=== PATIENT | female | born 1930 | race Caucasian/White ===

== ENCOUNTER 2019-06-26 22:32 | Inpatient (IN) | payer MEDICARE, OTHER ==
[~2019-06-26] VITALS: Ht 152.4 cm; Wt 69.7 kg
[2019-06-26] MEDS ORDERED: SODIUM CHLORIDE FLUSH 10ML SYR IVF ONE (23:00)
[2019-06-26] MEDS ORDERED: ONDANSETRON 2MG/ML, 2ML ONE (23:28)
[2019-06-26] MEDS ORDERED: MORPHINE SULFATE 4 MG/ML, 1ML ONE (23:29)
[2019-06-26] MEDS ORDERED: MORPHINE SULFATE 4 MG/ML, 1ML IVPush PRN (23:30)
[2019-06-26] MEDS ORDERED: ONDANSETRON 2MG/ML, 2ML IVPush ONE (23:30)
[2019-06-26] MEDS ORDERED: PLEASE ENTER ALLERGIES MC SCH (23:30)
[2019-06-26 23:39] LABS: BASOPHILS # (AUTO) 0.01 x10^3/uL (0-0.1); BASOPHILS % (AUTO) 0 % (0-1); EOSINOPHILS # (AUTO) 0.01 x10^3/uL (0-0.4); EOSINOPHILS % (AUTO) 0 % (1-7); LYMPHOCYTES # (AUTO) 0.63 x10^3/uL (1-3.4); LYMPHOCYTES % (AUTO) 4 % (22-44); MD NO; MEAN CORPUSCULAR HEMOGLOBIN 31.4 pg (27.0-34.8); MEAN CORPUSCULAR HGB CONC 33.2 g/dL (32.4-35.8); MEAN CORPUSCULAR VOLUME 94.7 fL (80-100); MONOCYTES # (AUTO) 0.83 x10^3/uL (0.2-0.8); MONOCYTES % (AUTO) 5 % (2-9); NEUTROPHILS # (AUTO) 14.85 x10^3/uL (1.8-6.8); NEUTROPHILS % (AUTO) 91 % (42-75); PLATELET COUNT 247 x10^3/uL (130-400); RED BLOOD COUNT 4.57 x10^6/uL (3.82-5.3); RED CELL DISTRIBUTION WIDTH 13.2 % (9.6-15.2)
[2019-06-26 23:48] LABS: PROTHROMBIN TIME 21.4 Seconds (9.6-11.5)
[2019-06-26 23:50] LABS: ALANINE AMINOTRANSFERASE 82 U/L (12-78); ALBUMIN 3.5 g/dL (3.4-5.0); ANION GAP 8 mmol/L (5-15); CALCIUM 9.2 mg/dL (8.5-10.1); CHLORIDE 104 mmol/L (98-107)
[2019-06-26 23:53] LABS: ALKALINE PHOSPHATASE 112 U/L (45-117); BILIRUBIN,TOTAL 0.4 mg/dL (0.2-1.0); CREATININE 1.08 mg/dL (0.55-1.02); TOTAL PROTEIN 7.5 g/dL (6.4-8.2)
--- NOTE | 2019-06-27 00:04 | NUR ---
Pt placed on 2lpm O2 for low SpO2 readings after Morphine.
--- NOTE | 2019-06-27 00:54 | NUR ---
[facility]ALL CALLED FOR TRANSFER OF PT. [facility] REFUSED. SPOKE WITH JASSON
[2019-06-27] MEDS ORDERED: SODIUM CHLORIDE FLUSH 10ML SYR IVF PRN (01:00)
[2019-06-27] MEDS ORDERED: ATOR-2 PO (01:16)
--- NOTE | 2019-06-27 01:19 | NUR ---
Report given to Kenia ANTUNEZ
[2019-06-27] MEDS ORDERED: WARF2.5T74 PO (01:20)
[2019-06-27] MEDS ORDERED: DILT120T3 PO (01:21)
[2019-06-27 02:00] VITALS: BP 146/90
[2019-06-27 02:46] LABS: MICROSCOPIC INDICATED
[2019-06-27 02:57] LABS: CULTURE INDICATED? YES
[2019-06-27] MEDS ORDERED: POLYETHYLENE GLYCOL 17 GM PACKET PO PRN (03:00)
[2019-06-27] MEDS ORDERED: DOCUSATE 100 MG CAPSULE PO PRN (03:00)
[2019-06-27] MEDS ORDERED: PROMETHAZINE 25 MG/ML, 1ML IM PRN (03:00)
[2019-06-27] MEDS ORDERED: BISACODYL 10 MG SUPP PR PRN (03:00)
[2019-06-27] MEDS ORDERED: ACETAMINOPHEN 325 MG TABLET PO PRN (03:00)
[2019-06-27] MEDS ORDERED: PLEASE ENTER ALLERGIES MC SCH (03:00)
[2019-06-27] MEDS ORDERED: morphine SULFATE 10 MG/ML, 1ML IVPush PRN ×2 (03:00→09:00)
[2019-06-27] MEDS ORDERED: OXYcodone IR 5MG TABLET PO PRN (03:00)
[2019-06-27] MEDS ORDERED: CEFTRIAXONE PMX 1GM/50ML 50 ML IV SCH (03:30)
[2019-06-27] MEDS: ONDANSETRON 2MG/ML, 2ML IVPush PRN ×2 (04:21→17:31)
[2019-06-27 07:31] LABS: MEAN CORPUSCULAR HEMOGLOBIN 31.3 pg (27.0-34.8); MEAN CORPUSCULAR HGB CONC 32.7 g/dL (32.4-35.8); MEAN CORPUSCULAR VOLUME 95.5 fL (80-100); MEAN PLATELET VOLUME 7.9 fL (7.4-10.4); PLATELET COUNT 217 x10^3/uL (130-400); RED BLOOD COUNT 4.15 x10^6/uL (3.82-5.3); RED CELL DISTRIBUTION WIDTH 13.3 % (9.6-15.2)
[2019-06-27 07:33] LABS: INTERNATIONAL NORMALIZED RATIO 1.98 (0.93-1.1); PROTHROMBIN TIME 21.1 Seconds (9.6-11.5)
[2019-06-27 07:38] LABS: CHLORIDE 106 mmol/L (98-107)
[2019-06-27] MEDS: CALCIUM/VITAMIN D3 250-125 TABLET PO SCH ×2 (07:41→19:53)
[2019-06-27] MEDS: DILTIAZEM 120 MG CAP.ER.24H PO SCH (07:42)
[2019-06-27 07:45] LABS: ALANINE AMINOTRANSFERASE 75 U/L (12-78); ALBUMIN 3.1 g/dL (3.4-5.0); ALKALINE PHOSPHATASE 100 U/L (45-117); ANION GAP 6 mmol/L (5-15); BILIRUBIN,TOTAL 0.4 mg/dL (0.2-1.0); CALCIUM 8.6 mg/dL (8.5-10.1); CREATININE 1.06 mg/dL (0.55-1.02); TOTAL PROTEIN 6.7 g/dL (6.4-8.2)
[2019-06-27 07:59] VITALS: BP 138/81
[2019-06-27 08:03] LABS: BASOPHILS # (AUTO) 0.01 x10^3/uL (0-0.1); BASOPHILS % (AUTO) 0 % (0-1); EOSINOPHILS % (AUTO) 0 % (1-7); LYMPHOCYTES # (AUTO) 0.77 x10^3/uL (1-3.4); LYMPHOCYTES % (AUTO) 7 % (22-44); MD SCAN; MONOCYTES # (AUTO) 0.62 x10^3/uL (0.2-0.8); MONOCYTES % (AUTO) 6 % (2-9); NEUTROPHILS # (AUTO) 8.99 x10^3/uL (1.8-6.8); NEUTROPHILS % (AUTO) 87 % (42-75)
[2019-06-27 15:17] VITALS: BP 122/72
[2019-06-27] MEDS: OXYcodone IR 5MG TABLET PO PRN ×2 (17:31→21:29)
[2019-06-27 18:52] VITALS: BP 127/78
[2019-06-27] MEDS: SENNA/DOCUSATE TABLET PO SCH (19:53)
[2019-06-27] MEDS ORDERED: ATORVASTATIN 80 MG TABLET PO SCH (21:00)
[2019-06-27] MEDS: ACETAMINOPHEN 325 MG TABLET PO PRN (21:28)
[2019-06-28] VITALS (12 sets, daily range): BP systolic 62–141; BP diastolic 60–77
[2019-06-28 05:20] LABS: ALBUMIN 2.8 g/dL (3.4-5.0); ANION GAP 5 mmol/L (5-15); CALCIUM 8.9 mg/dL (8.5-10.1); CHLORIDE 103 mmol/L (98-107)
[2019-06-28 05:25] LABS: ALANINE AMINOTRANSFERASE 121 U/L (12-78); ALKALINE PHOSPHATASE 105 U/L (45-117); BILIRUBIN,TOTAL 0.5 mg/dL (0.2-1.0); CREATININE 1.12 mg/dL (0.55-1.02); TOTAL PROTEIN 6.1 g/dL (6.4-8.2)
[2019-06-28] MEDS ORDERED: SODIUM CHLORIDE 0.9% 1,000 ML IV SCH (08:30)
[2019-06-28] MEDS: CALCIUM/VITAMIN D3 250-125 TABLET PO SCH ×2 (09:06→23:23)
[2019-06-28] MEDS: DILTIAZEM 120 MG CAP.ER.24H PO SCH (09:07)
[2019-06-28 10:04] LABS: INTERNATIONAL NORMALIZED RATIO 2.32 (0.93-1.1); PROTHROMBIN TIME 24.8 Seconds (9.6-11.5)
[2019-06-28] MEDS: ONDANSETRON 2MG/ML, 2ML IVPush PRN (11:07)
[2019-06-28] MEDS: OXYcodone IR 5MG TABLET PO PRN ×2 (11:07→15:36)
[2019-06-28] MEDS ORDERED: FUROSEMIDE 20 MG/2 ML IV ONE (12:30)
[2019-06-28] MEDS ORDERED: PHYTONADIONE 10 MG/ML, 1ML IM ONE (13:30)
[2019-06-28 13:36] LABS: INTERNATIONAL NORMALIZED RATIO 2.26 (0.93-1.1); PROTHROMBIN TIME 24.2 Seconds (9.6-11.5)
[2019-06-28] MEDS: ACETAMINOPHEN 325 MG TABLET PO PRN (15:09)
[2019-06-28] MEDS ORDERED: DIPHENHYDRAMINE 50 MG/ML, 1ML ONE (15:14)
[2019-06-28] MEDS ORDERED: DIPHENHYDRAMINE 50 MG/ML, 1ML IVPush ONE (15:30)
[2019-06-28 17:20] LABS: INTERNATIONAL NORMALIZED RATIO 1.47 (0.93-1.1); PROTHROMBIN TIME 15.6 Seconds (9.6-11.5)
[2019-06-28] MEDS ORDERED: LABETALOL 5MG/ML, 20ML IV PRN (19:00)
[2019-06-28] MEDS ORDERED: OXYcodone 5 MG/5 ML ORAL.SOL UDC PO PRN (19:00)
[2019-06-28] MEDS ORDERED: ONDANSETRON 2MG/ML, 2ML IV PRN (19:00)
[2019-06-28] MEDS ORDERED: EPHEDRINE 50 MG/ML, 1ML IVPush PRN (19:00)
[2019-06-28] MEDS ORDERED: HYDROmorphone 2 MG/ML, 1ML IVPush PRN (19:00)
[2019-06-28] MEDS ORDERED: PROMETHAZINE 25 MG/ML, 1ML IV PRN (19:00)
[2019-06-28] MEDS ORDERED: ACETAMINOPHEN 325 MG TABLET PO PRN (19:00)
[2019-06-28] MEDS ORDERED: hydrALAzine 20 MG/ML, 1ML IV PRN (19:00)
[2019-06-28] MEDS ORDERED: MEPERIDINE/PF 25MG/ML,1ML IVPush PRN (19:00)
[2019-06-28] MEDS ORDERED: FENTANYL PF 100 MCG/2ML ONE ×2 (19:55→21:27)
[2019-06-28] MEDS ORDERED: NEOSPORIN OINT, 15GM ONE (20:08)
[2019-06-28] MEDS ORDERED: PHENYLEPHRINE 10 MG/ML ONE (20:15)
[2019-06-28] MEDS ORDERED: ONDANSETRON 2MG/ML, 2ML ONE (20:44)
[2019-06-28] MEDS ORDERED: CEFAZOLIN 1,000 MG ONE (20:44)
[2019-06-28] MEDS ORDERED: PROPOFOL 10 MG/ML, 20ML ONE (20:44)
[2019-06-28] MEDS ORDERED: DEXAMETHASONE 4 MG/ML, 1ML ONE (20:44)
[2019-06-28] MEDS ORDERED: EPHEDRINE 50 MG/ML, 1ML ONE (20:44)
[2019-06-28] MEDS ORDERED: SUCCINYLCHOLINE 20 MG/ML, 10ML ONE (20:44)
[2019-06-28] MEDS ORDERED: GLYCOPYRROLATE 0.2MG/1ML, 5ML ONE (20:53)
[2019-06-28] MEDS: FENTANYL PF 100 MCG/2ML IV PRN ×2 (21:25→21:30)
[2019-06-28] MEDS ORDERED: OXYcodone 5 MG/5 ML ORAL.SOL UDC ONE (21:27)
[2019-06-28] MEDS ORDERED: HYDROmorphone 1 MG/ML, 1ML INJ ONE (21:37)
[2019-06-28] MEDS ORDERED: PROMETHAZINE 25 MG/ML, 1ML ONE (21:54)
[2019-06-28] MEDS: SENNA/DOCUSATE TABLET PO SCH (23:23)
[2019-06-29 00:05] VITALS: BP 114/74
[2019-06-29 04:05] VITALS: BP 113/78
[2019-06-29] MEDS: CEFAZOLIN PMX 1GM/50ML 50 ML IV SCH ×2 (04:18→15:44)
[2019-06-29] MEDS: OXYcodone IR 5MG TABLET PO PRN ×2 (05:07→10:45)
[2019-06-29 05:44] LABS: BASOPHILS # (AUTO) 0.01 x10^3/uL (0-0.1); BASOPHILS % (AUTO) 0 % (0-1); EOSINOPHILS # (AUTO) 0.09 x10^3/uL (0-0.4); EOSINOPHILS % (AUTO) 1 % (1-7); LYMPHOCYTES # (AUTO) 0.94 x10^3/uL (1-3.4); LYMPHOCYTES % (AUTO) 8 % (22-44); MD NO; MEAN CORPUSCULAR HEMOGLOBIN 31.7 pg (27.0-34.8); MEAN CORPUSCULAR HGB CONC 33.2 g/dL (32.4-35.8); MEAN CORPUSCULAR VOLUME 95.4 fL (80-100); MONOCYTES % (AUTO) 3 % (2-9); NEUTROPHILS # (AUTO) 10.31 x10^3/uL (1.8-6.8); NEUTROPHILS % (AUTO) 88 % (42-75); PLATELET COUNT 188 x10^3/uL (130-400); RED BLOOD COUNT 3.54 x10^6/uL (3.82-5.3); RED CELL DISTRIBUTION WIDTH 13.3 % (9.6-15.2)
[2019-06-29 05:48] LABS: INTERNATIONAL NORMALIZED RATIO 1.17 (0.93-1.1); PROTHROMBIN TIME 12.4 Seconds (9.6-11.5)
[2019-06-29] MEDS ORDERED: HEPARIN 5,000 UNITS/ML, 1ML SQ SCH (07:00)
[2019-06-29] MEDS: CALCIUM/VITAMIN D3 250-125 TABLET PO SCH ×2 (07:42→20:53)
[2019-06-29] MEDS: DILTIAZEM 120 MG CAP.ER.24H PO SCH (07:42)
[2019-06-29 08:02] VITALS: BP 125/45
[2019-06-29] MEDS: SODIUM CHLORIDE 0.9% 1,000 ML IV SCH (09:03)
[2019-06-29] MEDS: ONDANSETRON 2MG/ML, 2ML IVPush PRN ×2 (10:45→20:53)
[2019-06-29] MEDS ORDERED: DIPHENHYDRAMINE 50 MG/ML, 1ML IVPush ONE (11:00)
[2019-06-29 14:17] VITALS: BP 106/70
[2019-06-29] MEDS ORDERED: ENOXAPARIN 40 MG/0.4 ML SQ SCH (14:30)
[2019-06-29 18:44] VITALS: BP 112/73
[2019-06-29] MEDS: SENNA/DOCUSATE TABLET PO SCH (20:53)
[2019-06-30] MEDS: OXYcodone IR 5MG TABLET PO PRN ×4 (00:37→22:45)
[2019-06-30 02:31] VITALS: BP 118/71
[2019-06-30 07:48] VITALS: BP 119/73
[2019-06-30] MEDS: DILTIAZEM 120 MG CAP.ER.24H PO SCH (08:10)
[2019-06-30] MEDS: ALENDRONATE 10 MG TABLET PO SCH (08:10)
[2019-06-30] MEDS: CALCIUM/VITAMIN D3 250-125 TABLET PO SCH ×2 (08:10→20:30)
[2019-06-30 08:23] LABS: BASOPHILS # (AUTO) 0.02 x10^3/uL (0-0.1); BASOPHILS % (AUTO) 0 % (0-1); EOSINOPHILS % (AUTO) 0 % (1-7); LYMPHOCYTES # (AUTO) 1.83 x10^3/uL (1-3.4); LYMPHOCYTES % (AUTO) 14 % (22-44); MD NO; MEAN CORPUSCULAR HEMOGLOBIN 31.4 pg (27.0-34.8); MEAN CORPUSCULAR HGB CONC 32.6 g/dL (32.4-35.8); MEAN CORPUSCULAR VOLUME 96.4 fL (80-100); MEAN PLATELET VOLUME 7.9 fL (7.4-10.4); MONOCYTES # (AUTO) 0.68 x10^3/uL (0.2-0.8); MONOCYTES % (AUTO) 5 % (2-9); NEUTROPHILS # (AUTO) 10.68 x10^3/uL (1.8-6.8); NEUTROPHILS % (AUTO) 81 % (42-75); PLATELET COUNT 251 x10^3/uL (130-400); RED BLOOD COUNT 3.34 x10^6/uL (3.82-5.3); RED CELL DISTRIBUTION WIDTH 13.6 % (9.6-15.2)
[2019-06-30 08:31] LABS: INTERNATIONAL NORMALIZED RATIO 1.1 (0.93-1.1); PROTHROMBIN TIME 11.7 Seconds (9.6-11.5)
[2019-06-30] MEDS ORDERED: BISA10SU4 PR (09:35)
[2019-06-30] MEDS ORDERED: OXYC5TAB3 PO (09:35)
[2019-06-30] MEDS ORDERED: CALC1TAB68 PO (09:35)
[2019-06-30] MEDS ORDERED: ALEN10TA10 PO (09:35)
[2019-06-30] MEDS ORDERED: SENN-193 PO (09:35)
[2019-06-30] MEDS ORDERED: ACET325T26 PO (09:35)
[2019-06-30] MEDS: SODIUM CHLORIDE 0.9% 1,000 ML IV SCH (10:14)
[2019-06-30 13:41] VITALS: BP 107/61
[2019-06-30] MEDS: ACETAMINOPHEN 325 MG TABLET PO PRN (14:24)
[2019-06-30] MEDS: ENOXAPARIN 30 MG/0.3 ML SQ SCH (15:04)
[2019-06-30 19:06] VITALS: BP 114/71
[2019-06-30] MEDS: SENNA/DOCUSATE TABLET PO SCH (20:30)
[2019-07-01 00:59] VITALS: BP 132/69
[2019-07-01 05:52] LABS: INTERNATIONAL NORMALIZED RATIO 0.93 (0.93-1.1); PROTHROMBIN TIME 9.9 Seconds (9.6-11.5)
[2019-07-01] MEDS: SODIUM CHLORIDE 0.9% 1,000 ML IV SCH (06:19)
[2019-07-01] MEDS: ALENDRONATE 10 MG TABLET PO SCH (06:46)
[2019-07-01 07:26] VITALS: BP 122/73
[2019-07-01] MEDS: DILTIAZEM 120 MG CAP.ER.24H PO SCH (08:12)
[2019-07-01] MEDS: CALCIUM/VITAMIN D3 250-125 TABLET PO SCH ×2 (08:12→20:53)
[2019-07-01] MEDS: OXYcodone IR 5MG TABLET PO PRN (09:23)
[2019-07-01 13:53] VITALS: BP 116/72
[2019-07-01] MEDS: ENOXAPARIN 30 MG/0.3 ML SQ SCH (15:40)
[2019-07-01] MEDS ORDERED: WARFARIN 5 MG TABLET PO-COUM ONE (18:00)
[2019-07-01 20:27] VITALS: BP 125/61
[2019-07-01] MEDS: SENNA/DOCUSATE TABLET PO SCH (20:53)
[2019-07-02 02:32] VITALS: BP 122/77
[2019-07-02] MEDS: SODIUM CHLORIDE 0.9% 1,000 ML IV SCH ×2 (03:00→20:53)
[2019-07-02 05:26] LABS: INTERNATIONAL NORMALIZED RATIO 0.91 (0.93-1.1); PROTHROMBIN TIME 9.6 Seconds (9.6-11.5)
[2019-07-02] MEDS: ALENDRONATE 10 MG TABLET PO SCH (06:38)
[2019-07-02 07:12] VITALS: BP 144/85
[2019-07-02] MEDS: CALCIUM/VITAMIN D3 250-125 TABLET PO SCH ×2 (08:12→20:28)
[2019-07-02] MEDS: DILTIAZEM 120 MG CAP.ER.24H PO SCH (08:12)
[2019-07-02] MEDS ORDERED: ENOXAPARIN 30 MG/0.3 ML SQ SCH (11:02)
[2019-07-02 11:17] LABS: MEAN CORPUSCULAR HEMOGLOBIN 31.5 pg (27.0-34.8); MEAN CORPUSCULAR HGB CONC 32.6 g/dL (32.4-35.8); MEAN CORPUSCULAR VOLUME 96.7 fL (80-100); MEAN PLATELET VOLUME 8.1 fL (7.4-10.4); PLATELET COUNT 295 x10^3/uL (130-400); RED BLOOD COUNT 3.41 x10^6/uL (3.82-5.3); RED CELL DISTRIBUTION WIDTH 13.8 % (9.6-15.2)
[2019-07-02 11:22] LABS: ALANINE AMINOTRANSFERASE 43 U/L (12-78); ALBUMIN 2.6 g/dL (3.4-5.0); ANION GAP 7 mmol/L (5-15); CALCIUM 8.6 mg/dL (8.5-10.1); CHLORIDE 100 mmol/L (98-107); CREATININE 0.89 mg/dL (0.55-1.02)
[2019-07-02 11:24] LABS: ALKALINE PHOSPHATASE 104 U/L (45-117); BILIRUBIN,TOTAL 1.2 mg/dL (0.2-1.0); TOTAL PROTEIN 6.1 g/dL (6.4-8.2)
[2019-07-02 11:37] LABS: BASOPHILS # (AUTO) 0.03 x10^3/uL (0-0.1); BASOPHILS % (AUTO) 0 % (0-1); EOSINOPHILS % (AUTO) 2 % (1-7); LYMPHOCYTES # (AUTO) 3.93 x10^3/uL (1-3.4); LYMPHOCYTES % (AUTO) 28 % (22-44); MD SCAN; MONOCYTES # (AUTO) 0.65 x10^3/uL (0.2-0.8); MONOCYTES % (AUTO) 5 % (2-9); NEUTROPHILS % (AUTO) 65 % (42-75)
[2019-07-02] MEDS: CEFAZOLIN PMX 1GM/50ML 50 ML IV SCH ×2 (13:24→20:53)
[2019-07-02 13:30] VITALS: BP 115/75
[2019-07-02] MEDS ORDERED: ACETAMINOPHEN 325 MG TABLET PO PRN (13:30)
[2019-07-02] MEDS ORDERED: ENOXAPARIN 30 MG/0.3 ML SQ ONE (13:30)
[2019-07-02] MEDS: OXYcodone IR 5MG TABLET PO PRN ×2 (16:22→20:29)
[2019-07-02] MEDS ORDERED: WARFARIN 5 MG TABLET PO-COUM ONE (18:00)
[2019-07-02 20:19] VITALS: BP 122/75
[2019-07-02] MEDS: GABAPENTIN 100 MG CAPSULE PO SCH (20:28)
[2019-07-02] MEDS: SENNA/DOCUSATE TABLET PO SCH (20:29)
[2019-07-03 02:05] VITALS: BP 132/61
[2019-07-03] MEDS: OXYcodone IR 5MG TABLET PO PRN ×2 (02:05→06:02)
[2019-07-03] MEDS: CEFAZOLIN PMX 1GM/50ML 50 ML IV SCH ×3 (04:43→20:53)
[2019-07-03] MEDS: ALENDRONATE 10 MG TABLET PO SCH (06:02)
[2019-07-03 06:12] LABS: BASOPHILS # (AUTO) 0.02 x10^3/uL (0-0.1); BASOPHILS % (AUTO) 0 % (0-1); EOSINOPHILS # (AUTO) 0.07 x10^3/uL (0-0.4); EOSINOPHILS % (AUTO) 0 % (1-7); LYMPHOCYTES # (AUTO) 1.95 x10^3/uL (1-3.4); LYMPHOCYTES % (AUTO) 12 % (22-44); MD NO; MEAN CORPUSCULAR HEMOGLOBIN 32.6 pg (27.0-34.8); MEAN CORPUSCULAR HGB CONC 33.4 g/dL (32.4-35.8); MEAN CORPUSCULAR VOLUME 97.6 fL (80-100); MEAN PLATELET VOLUME 7.9 fL (7.4-10.4); MONOCYTES # (AUTO) 0.85 x10^3/uL (0.2-0.8); MONOCYTES % (AUTO) 5 % (2-9); NEUTROPHILS # (AUTO) 12.83 x10^3/uL (1.8-6.8); NEUTROPHILS % (AUTO) 82 % (42-75); PLATELET COUNT 263 x10^3/uL (130-400); RED BLOOD COUNT 3.07 x10^6/uL (3.82-5.3); RED CELL DISTRIBUTION WIDTH 13.9 % (9.6-15.2)
[2019-07-03 06:14] LABS: PROTHROMBIN TIME 10.6 Seconds (9.6-11.5)
[2019-07-03 09:25] VITALS: BP 144/66
[2019-07-03] MEDS: GABAPENTIN 100 MG CAPSULE PO SCH ×2 (09:25→20:53)
[2019-07-03] MEDS: CALCIUM/VITAMIN D3 250-125 TABLET PO SCH ×2 (09:25→20:53)
[2019-07-03] MEDS: DILTIAZEM 120 MG CAP.ER.24H PO SCH (09:25)
[2019-07-03 13:56] VITALS: BP 115/65
[2019-07-03] MEDS: ENOXAPARIN 60 MG/0.6 ML SQ SCH (16:55)
[2019-07-03] MEDS ORDERED: WARFARIN 5 MG TABLET PO-COUM ONE (18:00)
[2019-07-03] MEDS: SODIUM CHLORIDE 0.9% 1,000 ML IV SCH (18:21)
[2019-07-03 19:27] VITALS: BP 125/61
[2019-07-03] MEDS: SENNA/DOCUSATE TABLET PO SCH (20:53)
[2019-07-04 03:44] VITALS: BP 113/64
[2019-07-04] MEDS: CEFAZOLIN PMX 1GM/50ML 50 ML IV SCH ×3 (04:49→21:10)
[2019-07-04 05:46] LABS: INTERNATIONAL NORMALIZED RATIO 1.08 (0.93-1.1); PROTHROMBIN TIME 11.5 Seconds (9.6-11.5)
[2019-07-04] MEDS: ALENDRONATE 10 MG TABLET PO SCH (06:08)
[2019-07-04] MEDS: CALCIUM/VITAMIN D3 250-125 TABLET PO SCH ×2 (07:44→21:11)
[2019-07-04] MEDS: GABAPENTIN 100 MG CAPSULE PO SCH ×2 (07:44→21:10)
[2019-07-04] MEDS: DILTIAZEM 120 MG CAP.ER.24H PO SCH (07:44)
[2019-07-04] MEDS: OXYcodone IR 5MG TABLET PO PRN ×2 (07:44→21:11)
[2019-07-04 07:46] VITALS: BP 151/75
[2019-07-04 13:13] VITALS: BP 134/59
[2019-07-04] MEDS: SODIUM CHLORIDE 0.9% 1,000 ML IV SCH (15:53)
[2019-07-04] MEDS: ENOXAPARIN 60 MG/0.6 ML SQ SCH (16:28)
[2019-07-04] MEDS ORDERED: WARFARIN 5 MG TABLET PO-COUM ONE (18:00)
[2019-07-04 18:56] VITALS: BP 111/57
[2019-07-04] MEDS: SENNA/DOCUSATE TABLET PO SCH (21:11)
[2019-07-05 02:47] VITALS: BP 128/89
[2019-07-05 05:06] LABS: BASOPHILS # (AUTO) 0.02 x10^3/uL (0-0.1); BASOPHILS % (AUTO) 0 % (0-1); EOSINOPHILS # (AUTO) 0.49 x10^3/uL (0-0.4); EOSINOPHILS % (AUTO) 4 % (1-7); LYMPHOCYTES # (AUTO) 1.89 x10^3/uL (1-3.4); LYMPHOCYTES % (AUTO) 14 % (22-44); MD NO; MEAN CORPUSCULAR HEMOGLOBIN 32.4 pg (27.0-34.8); MEAN CORPUSCULAR HGB CONC 33.2 g/dL (32.4-35.8); MEAN CORPUSCULAR VOLUME 97.6 fL (80-100); MEAN PLATELET VOLUME 7.3 fL (7.4-10.4); MONOCYTES # (AUTO) 0.84 x10^3/uL (0.2-0.8); MONOCYTES % (AUTO) 6 % (2-9); NEUTROPHILS # (AUTO) 9.89 x10^3/uL (1.8-6.8); NEUTROPHILS % (AUTO) 75 % (42-75); PLATELET COUNT 252 x10^3/uL (130-400); RED CELL DISTRIBUTION WIDTH 14.5 % (9.6-15.2)
[2019-07-05 05:11] LABS: INTERNATIONAL NORMALIZED RATIO 1.17 (0.93-1.1); PROTHROMBIN TIME 12.4 Seconds (9.6-11.5)
[2019-07-05 05:14] LABS: ANION GAP 5 mmol/L (5-15); CALCIUM 8.3 mg/dL (8.5-10.1); CHLORIDE 104 mmol/L (98-107)
[2019-07-05] MEDS: CEFAZOLIN PMX 1GM/50ML 50 ML IV SCH ×2 (05:14→13:44)
[2019-07-05] MEDS: ALENDRONATE 10 MG TABLET PO SCH (05:14)
[2019-07-05 05:17] LABS: CREATININE 0.72 mg/dL (0.55-1.02)
[2019-07-05 07:01] VITALS: BP 138/84
[2019-07-05 08:08] VITALS: BP 139/65
[2019-07-05] MEDS: DILTIAZEM 120 MG CAP.ER.24H PO SCH (08:08)
[2019-07-05] MEDS: CALCIUM/VITAMIN D3 250-125 TABLET PO SCH (08:08)
[2019-07-05] MEDS: GABAPENTIN 100 MG CAPSULE PO SCH (08:08)
[2019-07-05] MEDS: OXYcodone IR 5MG TABLET PO PRN (10:48)
[2019-07-05] MEDS: SODIUM CHLORIDE 0.9% 1,000 ML IV SCH (11:00)
[2019-07-05 12:23] VITALS: BP 125/74
[2019-07-05] MEDS ORDERED: ACID1TAB3 PO (13:13)
[2019-07-05] MEDS ORDERED: CEPH-368 PO (13:13)
== END 2019-07-05 15:32 | DRG 481 ==
LOC: ED 06-27 00:24 → SUATTDRO 06-27 00:50 → 4NE 06-27 02:09
PROVIDERS: ADMIT Internal Medicine; ATTEND Hospitalist
PROC: 0T9B70Z Drainage of Bladder with Drainage Device, Via Natural or Artificial Opening (ICD-10-PCS; 2019-06-27)
PROC: 30233K1 Transfusion of Nonautologous Frozen Plasma into Peripheral Vein, Percutaneous Approach (ICD-10-PCS; 2019-06-28)
PROC: 0QS706Z Reposition Left Upper Femur with Intramedullary Internal Fixation Device, Open Approach (ICD-10-PCS; principal; 2019-06-28 13:30)
DX: S72.142A Displaced intertrochanteric fracture of left femur, initial encounter for closed fracture (principal); D68.69 Other thrombophilia; R65.10 Systemic inflammatory response syndrome (SIRS) of non-infectious origin without acute organ dysfunction; I48.20 Chronic atrial fibrillation, unspecified; N17.9 Acute kidney failure, unspecified; N39.0 Urinary tract infection, site not specified; Z88.5 Allergy status to narcotic agent; B91 Sequelae of poliomyelitis; B96.4 Proteus (mirabilis) (morganii) as the cause of diseases classified elsewhere; E78.5 Hyperlipidemia, unspecified; G47.00 Insomnia, unspecified; I10 Essential (primary) hypertension; M25.369 Other instability, unspecified knee; T45.515A Adverse effect of anticoagulants, initial encounter; Z79.01 Long term (current) use of anticoagulants; W18.39XA Other fall on same level, initial encounter; Y93.89 Activity, other specified; Y92.89 Other specified places as the place of occurrence of the external cause; Y99.8 Other external cause status
CPT/HCPCS: 36415; 71045; 76000; 80048; 80053; 81001; 85025; 85610; 85730; 86850; 86900; 87086; 87186; 93005; 96374; 96375; C1713; G0378; J0690; J0696; J1100; J1170; J1644; J1650; J2405; J2550; J2704; J3010; J3430; J0330; J1200; J1940; J2270; J2370; J7030; P9017

== ENCOUNTER 2020-03-21 16:39 | Emergency (ER) | payer MEDICARE ==
[~2020-03-21] VITALS: Ht 154.9 cm; Wt 55.1 kg
[~2020-03-21 16:39] MED LIST: ACET1TAB39 PO; ACET325T26 PO; ACID1TAB3 PO; ALEN10TA10 PO; ALEN70TA66 PO; APIX5TAB PO; ATOR-2 PO; BISA10SU4 PR; CALC1TAB68 PO; CEPH-368 PO; DILT120T3 PO; DILT180C53 PO; MELA5TAB14 PO; OXYC5TAB3 PO; PIPE2.257 IV; SENN-193 PO; WARF2.5T74 PO; WARF3TAB52 PO
[2020-03-21] MEDS ORDERED: OXYMETAZOLINE NASAL SPRAY 0.05%,30ML ONE (17:07)
--- NOTE | 2020-03-21 17:08 | NUR ---
C/O NOSEBLEED SINCE LAST NIGHT, REPORTS BLEEDING HAS NOT STOPPED. PLACED ON CARDIAC AND VITALS MONITORS.
[2020-03-21] MEDS ORDERED: SILVER NITRATE STICK TP ONE ×2 (17:41→18:00)
[2020-03-21] MEDS ORDERED: LIDOCAINE-MPF 1%, 2ML ONE (17:56)
[2020-03-21 19:15] VITALS: BP 109/82
== END 2020-03-21 19:17 | disposition home or self-care (01) ==
LOC: ED 18:09
DX: R04.0 Epistaxis (principal); I48.91 Unspecified atrial fibrillation; I10 Essential (primary) hypertension
CPT/HCPCS: 30901; 99284